=== PATIENT | male | born 1940 | race Caucasian/White ===

== ENCOUNTER 2018-06-05 01:30 | Inpatient (IN) | payer MEDICARE, BC ==
[2018-06-05] VITALS (7 sets, daily range): BP systolic 130–157; BP diastolic 69–77
[~2018-06-05] VITALS: Ht 177.8 cm; Wt 109.1 kg
[2018-06-05] MEDS ORDERED: IPRATROPIUM BROM3 M1 IH ×2 (02:23→02:24)
[2018-06-05] MEDS ORDERED: PROVENTIL0.09 MG/A1 IH (02:24)
[2018-06-05] MEDS ORDERED: XANAX0.25 M1 PO (02:26)
[2018-06-05] MEDS ORDERED: ASPIRIN 81M81 MG/TA2 PO (02:26)
[2018-06-05] MEDS ORDERED: ZITHROMAX Z PA250 MG PO (02:27)
[2018-06-05] MEDS ORDERED: CALCIUM 600600 MG PO (02:27)
[2018-06-05] MEDS ORDERED: COLACE100 M1 PO (02:28)
[2018-06-05] MEDS ORDERED: FENOFIBRATE160 MG PO (02:28)
[2018-06-05] MEDS ORDERED: FLUTICASONE P15.8 ML NS (02:29)
[2018-06-05] MEDS ORDERED: MASON NATURAL G1 CAP PO (02:32)
[2018-06-05] MEDS ORDERED: IBUPROFEN400 M1 PO (02:33)
[2018-06-05] MEDS ORDERED: MUCUS RELIEF600 MG PO (02:33)
[2018-06-05] MEDS ORDERED: DAILY VITAMIN1 EAC1 PO (02:34)
[2018-06-05] MEDS ORDERED: NIACIN500 M6 PO (02:35)
[2018-06-05] MEDS ORDERED: OMEGA-3 FISH1200 M1 PO (02:36)
[2018-06-05] MEDS ORDERED: PREDNISONE10 MG PO (02:37)
[2018-06-05] MEDS ORDERED: FLOMAX0.4 MG PO (02:38)
[2018-06-05] MEDS ORDERED: PROBIOTIC1 EAC1 PO (02:38)
[2018-06-05] MEDS ORDERED: ZANTAC150 M1 PO (02:38)
[2018-06-05] MEDS ORDERED: ZANAFLEX4 M1 PO (02:39)
[2018-06-05] MEDS ORDERED: BUSPAR 15MG TAB15 MG PO (10:03)
[2018-06-06 02:40] VITALS: BP 128/67
[2018-06-06 06:24] VITALS: BP 122/68
[2018-06-06 07:03] LABS: CALCIUM 8.6 mg/dL (8.4-10.2); POTASSIUM 3.7 mmol/L (3.6-5.0)
[2018-06-06 07:06] LABS: EOS # 0.2 (0.04-0.40); HEMATOCRIT 39.2 % (42.0-52.0); HEMOGLOBIN 13.8 g/dL (13.5-18.0); MEAN CELL VOLUME 91 fl (78-100); MEAN CORPUSCULAR HEMOGLOBIN 32 pg (27-31); MEAN CORPUSCULAR HGB CONC 35 g/dL (33-37); MEAN PLATELET VOLUME 9.8 fl (7.4-10.4); MONO # 0.4 (0.20-0.80); NEU # 6.1 (1.40-6.50); PLATELET COUNT 166 K/mm3 (130-400); RED BLOOD COUNT 4.29 M/mm3 (4.20-5.60); RED CELL DISTRIBUTION WIDTH 13.7 % (11.5-14.5); WHITE BLOOD COUNT 7.7 K/mm3 (4.8-10.8)
[2018-06-06 11:00] VITALS: BP 113/57
[2018-06-06 15:00] VITALS: BP 134/73
[2018-06-06 18:51] VITALS: BP 142/69
[2018-06-07] VITALS (7 sets, daily range): BP systolic 102–143; BP diastolic 46–78
[2018-06-08 02:59] VITALS: BP 137/72
[2018-06-08 06:24] VITALS: BP 130/71
[2018-06-08 06:38] LABS: HEMATOCRIT 39.8 % (42.0-52.0); HEMOGLOBIN 13.6 g/dL (13.5-18.0); MEAN CELL VOLUME 92 fl (78-100); MEAN CORPUSCULAR HEMOGLOBIN 31 pg (27-31); MEAN CORPUSCULAR HGB CONC 34 g/dL (33-37); MEAN PLATELET VOLUME 9.8 fl (7.4-10.4); PLATELET COUNT 192 K/mm3 (130-400); RED BLOOD COUNT 4.34 M/mm3 (4.20-5.60); RED CELL DISTRIBUTION WIDTH 14.1 % (11.5-14.5)
[2018-06-08 06:43] LABS: CALCIUM 8.8 mg/dL (8.4-10.2); POTASSIUM 4.2 mmol/L (3.6-5.0)
[2018-06-08 06:49] LABS: BAND 1 % (0-10); LYMPHOCYTE 8 % (20-51); MONOCYTE 2 % (3-10); NEUTROPHILS 86 % (42-75)
[2018-06-08 11:00] VITALS: BP 116/50
[2018-06-08 14:59] VITALS: BP 129/65
[2018-06-08 18:15] VITALS: BP 110/62
[2018-06-08 23:11] VITALS: BP 134/68
[2018-06-09 02:35] VITALS: BP 152/72
[2018-06-09 06:17] VITALS: BP 135/58
[2018-06-09 11:37] VITALS: BP 101/63
[2018-06-09] MEDS ORDERED: AMOXICILLIN AND1 TA2 PO (14:07)
[2018-06-09] MEDS ORDERED: PAROXETINE HYDR10 MG PO (14:07)
[2018-06-09] MEDS ORDERED: ATIVAN1 M1 PO (14:08)
[2018-06-09] MEDS ORDERED: QUETIAPINE FUMA50 MG PO (14:08)
[2018-06-09 15:16] VITALS: BP 151/67
== END 2018-06-09 15:15 | disposition home or self-care (01) | DRG 725 ==
LOC: MED/SURG 01:30
PROVIDERS: Nurse Practitioner Primary Care; ADMIT Family Medicine
DX: N40.1 Benign prostatic hyperplasia with lower urinary tract symptoms (principal); J18.9 Pneumonia, unspecified organism; J44.0 Chronic obstructive pulmonary disease with (acute) lower respiratory infection; F41.0 Panic disorder [episodic paroxysmal anxiety]; R33.8 Other retention of urine; J44.9 Chronic obstructive pulmonary disease, unspecified; Z99.81 Dependence on supplemental oxygen; Z87.891 Personal history of nicotine dependence; R19.7 Diarrhea, unspecified
CPT/HCPCS: J1650; J2543; J3010; Q9967